=== PATIENT | female | born 1990 | race African-American/Black ===

== ENCOUNTER 2018-03-31 15:56 | Emergency (ER) | payer OTHER ==
[2018-03-31] MEDS ORDERED: DIPHTH,PERTUSS(ACELL),TET 0.5 ML DISP.SYRIN IM ONE (16:06)
--- NOTE | 2018-03-31 16:12 | PDOC ---
Post Exposure HPI - General Chief Complaint: Blood/Body Fluid Exposure SJR Stated Complaint: NEEDLE STICK LEFT MIDDLE FINGER AT WORK Time Seen by Provider: 03/31/18 15:58 - History of Present Illness Initial Comments: 03/31/18 16:06 28 F with h/o asthma presents to ED with needlestick injury. Pt works at [place] and was checking a pt's blood sugar when the lancet she used to prick the pt's finger penetrated her glove and broke the skin on her R 3rd digit. Pt states that the patient is low-risk, with no known history of HIV or hepatitis. Past History - Past Medical History Allergies/Adverse Reactions: Allergies Allergy/AdvReac Type Severity Reaction Status Date / Time No Known Allergies Allergy Unverified 03/31/18 15:58 Home Medications: Ambulatory Orders NK [No Known Home Medication] 03/31/18 Review of Systems - Review of Systems Comments:: 03/31/18 16:09 GENERAL/CONSTITUTIONAL: No fever or chills. No weakness. HEAD, EYES, EARS, NOSE AND THROAT: No change in vision. No ear pain or discharge. No sore throat. CARDIOVASCULAR: No chest pain, no shortness of breath, no loss of consciousness RESPIRATORY: No cough, wheezing, or hemoptysis. GASTROINTESTINAL: No nausea, vomiting, diarrhea or constipation. GENITOURINARY: No dysuria, frequency, or change in urination. MUSCULOSKELETAL: No joint or muscle swelling or pain. No neck or back pain. SKIN: + needle stick to R 3rd finger, No rash NEUROLOGIC: No vertigo, no change in strength/sensation. ENDOCRINE: No increased thirst. No abnormal weight change. HEMATOLOGIC/LYMPHATIC: No anemia, easy bleeding, or history of blood clots. ALLERGIC/IMMUNOLOGIC: No hives or skin allergy. *Physical Exam - Physical Exam Comments: 03/31/18 16:10 "GENERAL: Awake, alert, and fully oriented, in no acute distress. HEAD: No signs of trauma EYES: PERRLA, EOMI, sclera anicteric, conjunctiva clear ENT: Auricles normal inspection, hearing grossly normal, nares patent, oropharynx clear without exudates. Moist mucosa NECK: Nontender, no stepoffs, Normal ROM, supple, no lymphadenopathy, JVD, or masses LUNGS: Breath sounds equal, clear to auscultation bilaterally. No wheezes, and no crackles HEART: Regular rate and rhythm, normal S1 and S2, no murmurs, rubs or gallops ABDOMEN: Soft, nontender, normoactive bowel sounds. No guarding, no rebound. No masses EXTREMITIES: Normal range of motion, no edema. No clubbing or cyanosis. No cords, erythema, or tenderness NEUROLOGICAL: Cranial nerves II through XII intact. 5/5 strength and sensation in all extremities, Normal speech, normal gait, normal cerebellar function SKIN: Warm, Dry, normal turgor, no rashes or lesions noted. Medical Decision Making - Medical Decision Making 03/31/18 16:10 28 F with needlestick injury while working at [employer] [place]. Pt believes pt is low risk. - HIV, hepatitis panel 03/31/18 16:50 Confirmed with [facility] that pt whose blood Ms. Henley was exposed to will be tested for HIV and HCV. I offered pt ppx in the meantime, but she declines, stating that the pt is low risk. Pt is well appearing, with normal vitals. Clinically stable for DC at this time. I discussed the physical exam findings, ancillary test results and final diagnoses with the patient. I answered all of the patient's questions. The patient was satisfied with the care received and felt comfortable with the discharge plan and treatment plan. The patient agrees to follow up with the primary care physician within 24-72 hours. *DC/Admit/Observation/Transfer Diagnosis at time of Disposition: Needlestick injury accident - Discharge Dispostion Disposition: HOME Condition at time of disposition: Stable - Referrals - Patient Instructions Printed Discharge Instructions: How to Handle Body Fluid Exposure -- Healthcare Worker Additional Instructions: We will call you with the results of your test. Please follow up on the HIV and hepatitis tests of the patient whose blood you were exposed to. If the patient tests positive or if they are unable to perform the tests, you will need prophylaxis. Return to the ER immediately. - Post Discharge Activity Forms/Work/School Notes: Back to Work - Attestations Physician Attestion: 03/31/18 16:53 I, Dr. James Mahoney MD, attest that this document has been prepared under my direction and personally reviewed by me in its entirety. I further attest, that it accurately reflects all work, treatment, procedures and medical decision -making performed by me.
[2018-03-31 17:15] VITALS: BP 125/82; PULSE 90; TEMP 98.7; BMI 33.5
[2018-04-03 06:06] LABS: HEP.C VIRUS AB <0.1 s/co ratio (0.0-0.9)
== END 2018-03-31 16:59 | disposition home or self-care (01) ==
LOC: FER 15:56
DX: S61.242A Puncture wound with foreign body of right middle finger without damage to nail, initial encounter (principal); W46.1XXA Contact with contaminated hypodermic needle, initial encounter; Y93.F9 Activity, other caregiving; Y92.129 Unspecified place in nursing home as the place of occurrence of the external cause
CPT/HCPCS: 36415; 80074; 87389; 99281-25